=== PATIENT | male | born 1945 | race Caucasian/White ===

== ENCOUNTER → 2016-05-27 | Outpatient (CLI) | payer MEDICARE, OTHER ==
[~2016-05-27] MED LIST: COU1 PO; COU2 PO; CRES10 PO; LAS20 PO; MONT10TA21 PO; NEBI10TA2 PO; NEBI5TAB9 PO; OLME20TA20 PO; PANT40TA4 PO; POTA20TA81 PO; PRAV80TA PO; ROSU10TA PO; VERA180T6 PO
--- NOTE | 2016-05-27 11:55 | RADRPT ---
PROCEDURE: XR pelvis/right hip. CLINICAL INDICATION: Hip pain TECHNIQUE: AP pelvis/AP and lateral right hip views available for review. COMPARISON: 02/26/2016 FINDINGS: There is a right total hip replacement. There is no evidence of loosening of the prosthesis. There is moderate left hip osteoarthrosis. This is associated with joint space narrowing, subchondra l sclerosis and osteophytosis. There is normal osseous mineralization. No fractures or osseous lesio ns are identified. The soft tissues are unremarkable. IMPRESSION: Right total hip replacement. Moderate left hip osteoarthrosis. RPTAT: HGDB .Michel Melton MD, MD Date Time Electronically viewed and signed by .Michel Melton MD, MD on 05/27/2016 11:55 .B/
== END | disposition home or self-care (01) ==
LOC: HKI 10:38
PROVIDERS: ATTEND Orthopaedic Surgery
DX: M17.0 Bilateral primary osteoarthritis of knee (principal); M25.562 Pain in left knee; M25.561 Pain in right knee; Z96.641 Presence of right artificial hip joint
CPT/HCPCS: 73502; G0463

== ENCOUNTER → 2016-06-28 | Outpatient (CLI) | payer MEDICARE, OTHER ==
--- NOTE | 2016-06-28 11:40 | RADRPT ---
PROCEDURE: XR Chest. CLINICAL INDICATION: Preop chest x-ray. TECHNIQUE: Single frontal view of the chest was obtained COMPARISON: No. FINDINGS: The soft tissues are normal. Mediastinum has been performed. There are clips in the mediastinum. The heart is enlarged. The cardiomediastinal silhouette, pulmonary vasculature and hilar structures are normal. There are vascular calcifications in the aortic arch. There is a 7 mm calcified granulo ma lateral to the right hilum. There are increased interstitial markings in the bases of the lungs. The costophrenic angles are normal. IMPRESSION: 1. Status post median sternotomy for coronary artery bypass surgery. 2. 7 mm calcified granuloma in the left mid lung field. 3. Compressive atelectasis resulting in increased interstitial markings in the bases of the lungs fr om a poor inspiration. There is no evidence of active cardiopulmonary disease. RPTAT:AAJJ Physician Adina Date Time Electronically viewed and signed by Physician Adina on 06/28/2016 11:40 NORMA/
--- NOTE | 2016-06-28 14:26 | RADRPT ---
PROCEDURE: Limited x-ray of both lower extremities. CLINICAL INDICATION: Bilateral leg pain. TECHNIQUE: Single frontal view of both lower extremities was obtained from the hips to the calves. COMPARISON: None. FINDINGS: The hips are not well seen due to overlying soft tissues. There is a right hip total arthroplasty w hich appears grossly satisfactory. There are moderate degenerative changes of the left hip with sue nt space narrowing and osteophytes. There are degenerative changes of both knees with joint space n arrowing, osteophytes, and medial joint compartment narrowing. Surgical clips are present in the so ft tissues medial to the left knee. IMPRESSION: 1. Right hip total arthroplasty. 2. Moderate degenerative changes of the left hip. 3. Severe degenerative changes of both knees. RPTAT: QQ .Johnny Juan MD, Date Time Electronically viewed and signed by .Johnny Juan MD, on 06/28/2016 14:26 .R/
== END | disposition home or self-care (01) ==
LOC: HKI 10:29
PROVIDERS: ATTEND Orthopaedic Surgery
DX: M25.562 Pain in left knee (principal); M17.12 Unilateral primary osteoarthritis, left knee; Z96.641 Presence of right artificial hip joint
CPT/HCPCS: 71010; 77073; G0463

== ENCOUNTER 2016-07-04 07:32 | Inpatient (IN) | payer MEDICARE, OTHER ==
[2016-07-04] VITALS (31 sets, daily range): BP systolic 88–136; BP diastolic 51–81; PULSE 50–89; RESP 15–28; Ht 190.5 cm; Wt 146.3 kg
[~2016-07-04] VITALS: Ht 190.5 cm; Wt 146.3 kg
[~2016-07-04 07:32] MED LIST changes: +BUPIVACAINE LIPOSOME/PF 266 MG/20 ML VIAL INFIL ONE; +CEFAZOLIN 2GM/50 ML (PMX) 50 ML X1 BEFORE INCISION IVPB ONE; +CELECOXIB 400 MG PO X1 DOSE PO ONE; +EPHEDrine SULFATE 50 MG/5 ML SYG ONE; +LACTATED RINGER'S 1,000 ML IV SCH; +PAIN COCKTAIL-CEFUROXIME IRR ONE; +PREGABALIN 300 MG PO X1 PO ONE; +SOD CHLORIDE 0.9% IV ONE; +SOD CHLORIDE 0.9% IVPB ONE; +TRANEXAMIC ACID IV ONE; +TRANEXAMIC ACID IVPB ONE; +oxyCODONE (CR) 10 MG TAB [oxyCONTIN] X1 DOSE PO ONE; +traMADOL 50 MG TAB X 1 DOSE PO ONE
[2016-07-04] MEDS ORDERED: BACITRACIN 50000 UNITS INJ ONE (09:20)
[2016-07-04 09:26] LABS: INR 0.96; PROTIME 12.8 Sec (12.2-14.2)
[2016-07-04 09:27] LABS: PARTIAL THROMBOPLASTIN TIME 32.6 Sec (25.0-35.0)
[2016-07-04] MEDS ORDERED: METF-382 PO (09:30)
[2016-07-04] MEDS ORDERED: PRAV80TA PO (09:30)
[2016-07-04] MEDS ORDERED: DABI150C PO (09:32)
[2016-07-04] MEDS ORDERED: IBUP200C11 PO (09:32)
[2016-07-04] MEDS ORDERED: VANCOMYCIN 1 GM INJ ONE (09:48)
[2016-07-04] MEDS ORDERED: POLYMYXIN B 500000 UNIT INJ ONE (09:48)
[2016-07-04] MEDS ORDERED: SODIUM CL BACTERIOSTATIC 30 ML INJ ONE ×2 (09:48→11:11)
--- NOTE | 2016-07-04 10:02 | HPN ---
Date/Time of Note Date/Time of Note DATE: 07/04/16 TIME: 10:02 Interval H&P Admission Note Pt. seen H&P reviewed: No system changes No change from H&P by Dr. Hollis Ybarra on 06/18/16 LEXIE DUKES MD Jul 04, 2016 10:02
[2016-07-04] MEDS ORDERED: EXPAREL NOTE (BUPIVICAINE LIPOSOMAL) XX SCH (10:30)
[2016-07-04] MEDS ORDERED: ETOMIDATE 20 MG INJ ONE (10:46)
[2016-07-04] MEDS ORDERED: PROPOFOL 100 ML ONE (10:48)
[2016-07-04] MEDS ORDERED: FENTAnyl 50 MCG/ML VIAL ONE (10:48)
[2016-07-04] MEDS ORDERED: MIDAZOLAM 1 MG/ML 2 ML INJ ONE (10:48)
[2016-07-04] MEDS ORDERED: METOCLOPRAMIDE 10 MG INJ ONE (10:49)
[2016-07-04] MEDS ORDERED: DEXAMETHASONE 4 MG/ML 1 ML INJ ONE (10:50)
[2016-07-04] MEDS ORDERED: CEFAZOLIN 1 GM INJ ONE (10:51)
[2016-07-04] MEDS ORDERED: METOCLOPRAMIDE 10 MG INJ IV PRN (11:30)
[2016-07-04] MEDS ORDERED: ONDANSETRON 4 MG INJ IV PRN ×2 (11:30→13:00)
[2016-07-04] MEDS ORDERED: MEPERIDINE 25 MG INJ IV PRN (11:30)
[2016-07-04] MEDS ORDERED: hydrALAzine 20 MG INJ IV PRN (11:30)
[2016-07-04] MEDS ORDERED: LABETALOL HCL 20MG INJ IV PRN (11:30)
[2016-07-04] MEDS ORDERED: DIPHENHYDRAMINE 50 MG INJ IV PRN (11:30)
[2016-07-04] MEDS ORDERED: HYDROmorphONE (0.2 MG/ML) 10ML SYG IV PRN ×3 (11:30)
[2016-07-04] MEDS: LACTATED RINGER'S 1,000 ML IV SCH ×2 (12:51→20:39)
--- NOTE | 2016-07-04 12:58 | OPR ---
Date/Time of Note Date/Time of Note DATE: 07/04/16 TIME: 12:57 Operative Report Free Text/Dictation Dictation # [id number] Procedure Date: Jul 04, 2016 Preoperative Diagnosis Left Knee OA Postoperative Diagnosis Same Operation Performed Left TKA Surgeon: LEXIE DUKES MD safety assistant: KIRSTEN WALDRON PA-C Anesthesia: general, spinal Anesthesiologist: POONAM AGUILAR MD Tourniquet Time: 59 min Estimated Blood Loss: 50 - 100 ml's Specimens Bone and soft tissue Tubes/Drains Hemovac x 1 Complications: None Pt Condition Post Procedure: stable Disposition: PACU LEXIE DUKES MD Jul 04, 2016 12:58
[2016-07-04] MEDS ORDERED: oxyCODONE 5 MG TAB PO PRN ×2 (13:00)
[2016-07-04] MEDS ORDERED: NA PHOSPHATE/BIPHOS 133 ML ENEMA PR PRN (13:00)
[2016-07-04] MEDS ORDERED: BISACODYL 10 MG SUPP PR PRN (13:00)
[2016-07-04] MEDS ORDERED: NACL 0.9% 3 ML SYG IV SCH (13:00)
[2016-07-04] MEDS ORDERED: MAGNESIUM HYDROXIDE 30ML CUP PO PRN (13:00)
[2016-07-04] MEDS ORDERED: HYDROmorphONE 1 MG/ML SYG IV PRN (13:00)
[2016-07-04] MEDS ORDERED: DIPHENHYDRAMINE 25 MG CAP PO PRN (13:00)
[2016-07-04] MEDS: CEFAZOLIN 2 GM/50 ML (PMX) 50 ML IVPB SCH ×2 (13:19→20:40)
--- NOTE | 2016-07-04 13:36 | OPR ---
DATE OF OPERATION: 07/04/2016 PREOPERATIVE DIAGNOSIS: Left knee osteoarthritis. POSTOPERATIVE DIAGNOSIS: Left knee osteoarthritis. OPERATION PERFORMED: Left total knee arthroplasty. SURGEON: Lexie Call MD STAFFING MGR: LAKIA Christianson COMPONENTS USED: DePuy Attune size 8 femoral component, size 8 tibial baseplate, 5-mm polyethylene insert, 41 patellar button. ANESTHESIA: Spinal, plus general endotracheal intubation, plus periarticular injection. ANESTHESIOLOGIST: Dr. Varghese TOURNIQUET TIME: 59 minutes. ESTIMATED BLOOD LOSS: 50 mL. INTRAVENOUS FLUIDS: 2 liters of crystalloid. SPECIMENS: Bone and soft tissue. DRAINS: Hemovac x1. COMPLICATIONS: None. DISPOSITION: Patient tolerated the procedure well and was taken [facility] the [facility] INDICATIONS: The patient is a 70-year-old gentleman who has had progressive worsening pain in the l eft knee with radiographic evidence of severe osteoarthritis. He has failed nonsurgical means of tr eatment to control his pain, including activity modifications, pain medications, intra-articular inj ections, and ambulatory assist devices. Despite these measures, he has had worsening pain and I fel t he would benefit from a total hip arthroplasty. The risks, benefits, and alternatives of the procedure were explained in detail to the patient. I e xplained the risks of the surgery to include but not be limited to, bleeding and possible need for b lood transfusion; infection; pain; stiffness; neurovascular injury with possible numbness, weakness, and/or paralysis anywhere from the knee down to the toes; fracture; instability; dislocation; wear and/or loosening of the prosthesis and possible need for future revision; blood clots; pulmonary emb olism; and anesthetic complications such as heart attack, stroke, GI bleed, pneumonia, and/or . Ample time was allowed for the patient to ask questions, all of which were addressed and answered. The patient understood the risks involved and wished to proceed. Informed consent was signed prior to the procedure. APPROACH: The patella was cut from 26 mm down to 16 mm in size. PROCEDURE: The patient's left knee was initialed with a marking pen in the preoperative area to letitia ntify the correct operative site. The patient was brought to the operating room and transferred fro [facility] to the operating table where a spinal anesthetic was administered. The patient was then anesthetized and intubated. A Wall catheter was placed. A timeout was performed to conf irm that the left leg was the correct operative site. The patient was given 2 g of Ancef within one hour prior to the procedure. A tourniquet was placed on the operative proximal thigh. The operati ve knee and lower extremity were prepped and draped in the usual sterile fashion. The operative low er extremity was elevated and exsanguinated with an Esmarch tourniquet. The proximal thigh tourniqu et was inflated to 300 mmHg. The knee was flexed. A midline incision was made and carried down through the subcutaneous tissue a nd fat with sharp dissection. Limited medial and lateral flaps were raised. A median parapatellar arthrotomy approach was performed. Synovial fluid was normal in color and consistency. The patella was everted and the knee flexed. There were severe tricompartmental osteoarthritic changes noted. A medial release was performed at the joint line to the midcoronal plane. The ACL and PCL and remnan ts of the menisci were excised. The stepped drill was used to open up the femoral canal which was i rrigated and sucked dry. The intramedullary guide julito was passed up the femur, and the distal cutti ng block was pinned into place for a 6 degree valgus cut, taking 10 mm of bone off distally. The osc illating saw was used to make the cut. The tibia was subluxed anteriorly. The tibial cutoff jig was placed over the center of the talus di stally and over the junction of the medial and middle third of the tibial tubercle proximally. The g uide was pinned into place and the oscillating saw was used to make the cut. The tibia was sized. The flexion gap was checked and accommodated a 5-mm spacer block with the knee in full extension. T here was no varus or valgus instability. At this point, the femur was sized with the posterior referencing guide. Two holes were drilled in 3 degrees of external rotation. The two holes were in line with the transepicondylar axis, perpendi cular to Duval's line, and in line with the tibial cutoff jig brought up with the knee flexed 90 degrees and tensed with 2 lamina spreaders, suggesting the femoral rotation was correct. The four- in-one cutting block was pinned into place. The anterior and posterior cuts and chamfer cuts were m thelma with the oscillating saw. The flexion gap was checked and accommodated a 5-mm spacer block at 9 0 degrees. There was no varus or valgus instability, suggesting the flexion and extension gaps were now equal. The central box was cut out on the femur. The tibia was drilled and punched in proper rotation. Tri al components were placed into position with a trial insert. The patella was cut from 26 mm down to 16 mm in size. Three holes were drilled and the trial button placed in position. With all the tri als now in place, the knee was taken through range of motion and came to full extension as evidenced by the fact that with the foot on my abdomen and axial loading, there was no tendency for the knee to flex. The knee was able to be flexed to 125 degrees with good patellar tracking with no lateral tilt or subluxation. At this point, I was satisfied with the overall range of motion, stability, an d patellar tracking. The trials were removed. The real components were opened. Two bags of cement were mixed, one with and one without premixed antibiotic. The knee was irrigated with antibiotic saline and sucked dry. Once the cement was in a doughy stage, the real components were cemented into place. The knee was held in full extension, and the patellar component was held with a patellar clamp. All excess cemen t was removed with curettes. As the cement was hardening, the synovial/capsular layer was infiltrat ed with a mixture of 150 mg of 0.5% Bupivacaine, 8 mg of Duramorph, 300 mcg of epinephrine, 30 mg of Toradol, 100 mcg of clonidine, 750 mg of cefuroxime and 86 mL of normal saline, followed by an inje ction of 266 mg of liposomal Bupivacaine. A Hemovac drain was placed in the deep portion of the wound and brought out the anterolateral thigh. Once the cement was completely hardened, the trial liner was removed, and the real insert was open ed. The tourniquet was let down, and there was good hemostasis. The knee was then irrigated with a mixture of betadine/saline and then antibiotic saline with pulsatile lavage. The real insert was im pacted into the tibia and reduced onto to the femur. The arthrotomy was closed with a few interrupted #1 Ethibond in a [id number]-[id number] fashion, and then closed in a watertight fashion with a running #2 Stratafix suture. Knee flexion was checked against gravity and came to 125 degrees. The subcutaneous layer was irrigated and closed with 2-0 Statafix , and then 3-0 Vicryl and then vianey on the skin. The wound was covered with an occlusive dressin g, and secured with cast padding and a bias dressing. The drain was secured with 3-0 nylon. The sponge and needle counts were correct at the end of the case. The patient was then awakened, ex tubated, and taken to the recovery room in stable condition. DISPOSITION: The patient tolerated the procedure well and was taken to the recovery room in stable condition. Dictated By: LEXIE VORA/NTS Conf#: [id number] DID#: [id number]
[2016-07-04 13:49] LABS: HEMOGLOBIN 12.6 g/dl (14.0-18.0)
--- NOTE | 2016-07-04 13:53 | CONS ---
DATE OF ADMISSION: 07/04/2016 DATE OF CONSULTATION: 07/04/2016 POSTOPERATIVE MEDICAL CONSULTATIVE NOTE Dear Dr. Bright: Thank you very much for allowing me to evaluate this 70-year-old male who just underwent left total knee arthroplasty. HISTORICAL EVENTS: As you well know, this patient has had progressive disabling pain involving his left knee and for this, underwent the above-mentioned surgery. In recovery he is somnolent, not tac hypneic. Denies shortness of breath, abdominal pain or chest pain. PAST MEDICAL HISTORY INCLUDES: 1. History of recurrent atrial flutter, undergoing ablation in 2004, with known coronary disease, u ndergoing coronary artery bypass surgery in 1999 and percutaneous coronary intervention. 2. History of hypertension. 3. Hyperlipidemia, on chronic anticoagulation therapy. 4. Antecedent hip surgery (right). 5. Nasal surgery. MEDICATIONS: 1. Singulair 10 mg day. 2. Benicar 20 mg per day. 3. Pravachol 80 mg per day. 4. Pradaxa 150 mg b.i.d. 5. Verapamil ER 180 per day. 6. Bystolic 10 mg per day. 7. Lasix 20 mg per day. 8. Metformin 500 mg b.i.d. 9. K-Kristen 20 mEq per day. ALLERGIES OR INTOLERANCES: INCLUDE: 1. ATORVASTATIN. 2. NIACIN. 3. SIMVASTATIN. 4. ZETIA. 5. COUMADIN. SOCIAL HISTORY: He is . A prior smoker. He does drink alcohol. PHYSICAL EXAMINATION: GENERAL: [place] male, in no acute distress message. VITAL SIGNS: BP 122/80, pulse 70, respirations were 20. He was afebrile. EYES: Extraocular muscles were full. NOSE, MOUTH, AND THROAT: Normal. NECK: Supple. No jugular venous distention, thyroid enlargement or adenopathy. LUNGS: Clear. HEART: Rhythm regular. ABDOMEN: Nontender. Liver and spleen were not palpable. No masses or tenderness were noted. EXTREMITIES: No edema. Calves were nontender. IMPRESSION: Stable postoperative. PLAN: 1. Will follow daily for signs and symptoms of thromboembolic disease despite appropriate DVT proph ylaxis. 2. History of supraventricular dysrhythmia. Will be observing for the same. Presently in regular rhythm. 3. History of hypertension. Continue antihypertensive therapy. Blood pressures will be monitored throughout. 4. Hyperlipidemia. Continue a statin daily. Dictated By: VIKRAM GIVENS MD MR/NTS Conf#: [id number] DID#: [id number]
[2016-07-04 14:14] LABS: CALCIUM 8.8 mg/dl (8.4-10.2); CREATININE 0.81 mg/dl (0.61-1.24)
--- NOTE | 2016-07-04 14:15 | RADRPT ---
PROCEDURE: CR Left Knee CLINICAL INDICATION: Postop TECHNIQUE: Portable AP and lateral views were submitted. COMPARISON: To the lower extremities study done 06/28/2016 FINDINGS: Osseous Structures: Since the previous study, the patient has undergone a total left knee replacemen t and the components appear well seated. The osseous elements are otherwise rarefied but intact. Joint Spaces: Fluid accumulation and a small amount of air is seen within the joint space and a surg ical drain has been placed. Soft Tissues: Subcutaneous air is evident at multiple vianey are again seen within the soft tissues medially and superficial vianey of placed anteriorly. A small curvilinear calcification is seen o ff the medial distal femoral epicondyle compatible with a Armida-Stieda calcification. IMPRESSION: 1. Well seated total left knee replacement. 2. Postop changes with interarticular fluid in air with the drain placed. 3. Armida-Stieda calcification. 4. Surgical vianey are again noted in the medial soft tissues and superficial vianey have been pl aced ventrally. Physician Selene Date Time Electronically viewed and signed by Physician Selene on 07/04/2016 14:15 /
[2016-07-04] MEDS: LOSARTAN 50 MG TAB PO SCH (15:00)
--- NOTE | 2016-07-04 15:30 | PN ---
Date/Time of Note Date/Time of Note DATE: 07/04/16 TIME: 15:28 Assessment/Plan Lines/Catheters IV Catheter Type (from Nrsg): Peripheral IV Jain in Place (from Nrsg): Yes Assessment/Plan Assessment/Plan Stable in PACU, s/p left TKA -continue abx until drains removed -pain meds as needed -Coumadin 3mg at 1700 today -SCDs for DVT prophylaxis -OOB with PT -check AM labs including INR -monitor drain -d/c jain in AM XR of the left knee shows good alignment with no evidence of fracture or dislocation Subjective 24 Hr Interval Summary Stable in PACU. Moving all extremities. Denies significant pain. Exam/Review of Systems Vital Signs Vitals Vital Signs Date Time Temp Pulse Resp B/P Pulse Ox O2 Delivery O2 Flow Rate FiO2 07/04/16 15:00 Nasal Cannula 2.0 07/04/16 14:40 98.3 58 15 93/54 94 Exam Free Text/Dictation Hemovac: Minimal Dressing dry Incision clean, dry, and intact without redness or drainage Thigh soft 5/5 Quadriceps, Tibialis Anterior, EHL, Gastroc, Soleus, Peroneals Normal sensation Palpable DT/PT, CR <2 sec No distal edema Results Result Diagram: 07/04/16 1325 07/04/16 1325 KIRSTEN WALDRON PA-C Jul 04, 2016 15:30
[2016-07-04] MEDS ORDERED: TRANEXAMIC ACID IVPB ONE ×2 (16:00→19:00)
[2016-07-04] MEDS ORDERED: SOD CHLORIDE 0.9% IVPB ONE ×2 (16:00→19:00)
[2016-07-04] MEDS ORDERED: WARFARIN 3 MG TAB PO ONE (17:00)
[2016-07-04] MEDS: PANTOPRAZOLE (EC) 40 MG TAB PO SCH (17:40)
[2016-07-04] MEDS: ACETAMINOPHEN 1000MG/100ML IV 100 ML IVPB SCH ×2 (17:41→23:56)
[2016-07-04] MEDS: traMADol 50 MG TAB PO SCH ×2 (18:00→23:55)
[2016-07-04] MEDS: DOCUSATE SODIUM 100 MG CAP PO SCH (20:39)
[2016-07-04] MEDS: PREGABALIN 50 MG CAP PO SCH (20:39)
[2016-07-04] MEDS: ROSUVASTATIN CALCIUM 40 MG TABLET PO SCH (20:40)
[2016-07-04] MEDS ORDERED: NON-FORMULARY/PATIENT OWN MED (Rosuvastatin Calcium* (Crestor*) 10 MG) PO SCH (21:00)
[2016-07-04] MEDS ORDERED: POTASSIUM CHLORIDE (SR) 20 MEQ TAB PO SCH (21:00)
[2016-07-04] MEDS: VERAPAMIL (SR) 180 MG TAB PO SCH (21:31)
[2016-07-05 02:00] VITALS: BP 104/68; PULSE 76; RESP 16
[2016-07-05 05:01] LABS: HEMATOCRIT 37.2 % (42.0-52.0); HEMOGLOBIN 11.7 g/dl (14.0-18.0)
[2016-07-05 05:10] LABS: POTASSIUM 4.9 mmol/L (3.5-5.1)
[2016-07-05 05:11] LABS: INR 1.05; PROTIME 13.7 Sec (12.2-14.2); PT RATIO 1.1
[2016-07-05 05:12] LABS: CREATININE 0.98 mg/dl (0.61-1.24)
[2016-07-05] MEDS: CEFAZOLIN 2 GM/50 ML (PMX) 50 ML IVPB SCH (05:14)
[2016-07-05] MEDS: PANTOPRAZOLE (EC) 40 MG TAB PO SCH ×2 (05:14→17:38)
[2016-07-05 05:17] LABS: MAGNESIUM 1.9 mg/dl (1.7-2.5); PHOSPHORUS 4.3 mg/dl (2.5-4.9)
[2016-07-05] MEDS: LACTATED RINGER'S 1,000 ML IV SCH ×3 (05:22→20:51)
[2016-07-05] MEDS: traMADol 50 MG TAB PO SCH ×4 (05:52→23:44)
[2016-07-05] MEDS: ACETAMINOPHEN 1000MG/100ML IV 100 ML IVPB SCH ×2 (05:52→11:38)
[2016-07-05 07:51] VITALS: BP 118/64; RESP 20
[2016-07-05] MEDS ORDERED: PRAVASTATIN SODIUM 80 MG PO SCH (09:00)
[2016-07-05] MEDS ORDERED: FUROSEMIDE 20 MG TAB PO SCH (09:00)
[2016-07-05] MEDS: NEBIVOLOL 5 MG TAB PO SCH (09:14)
[2016-07-05] MEDS: MONTELUKAST 10 MG TAB PO SCH (09:14)
[2016-07-05] MEDS: PREGABALIN 50 MG CAP PO SCH ×2 (09:14→21:49)
[2016-07-05] MEDS: metFORMIN 500 MG TAB PO SCH (09:14)
[2016-07-05] MEDS: DOCUSATE SODIUM 100 MG CAP PO SCH ×2 (09:14→21:48)
[2016-07-05] MEDS: LOSARTAN 50 MG TAB PO SCH (09:15)
[2016-07-05] MEDS: VERAPAMIL (SR) 180 MG TAB PO SCH ×2 (09:15→21:48)
--- NOTE | 2016-07-05 09:15 | PN ---
Date/Time of Note Date/Time of Note DATE: 07/05/16 TIME: 09:14 Assessment/Plan Lines/Catheters IV Catheter Type (from Nrsg): Peripheral IV Wall in Place (from Nrsg): Yes Assessment/Plan Assessment/Plan Stable POD #1, s/p left TKA -d/c abx -pain meds as needed -Coumadin 3mg at 1700 today -SCDs BLE -OOB with PT -drain removed -check AM labs including INR -d/c planning. Will plan to go home upon discharge Subjective 24 Hr Interval Summary No acute overnight events. Denies significant pain. Did not start PT yesterday. VSS, afebrile. Will plan to go home upon discharge. Exam/Review of Systems Vital Signs Vitals Vital Signs Date Time Temp Pulse Resp B/P Pulse Ox O2 Delivery O2 Flow Rate FiO2 07/05/16 07:51 97.5 64 20 118/64 97 07/05/16 02:00 Nasal Cannula 2.0 Intake and Output 07/04/16 07/04/16 07/05/16 15:00 23:00 07:00 Intake Total 1800 ml 1129.2 ml 1550 ml Output Total 180 ml 300 ml 430 ml Balance 1620 ml 829.2 ml 1120 ml Exam Free Text/Dictation Hemovac: 160cc Dressing dry Incision clean, dry, and intact without redness or drainage Thigh soft 5/5 Quadriceps, Tibialis Anterior, EHL, Gastroc, Soleus, Peroneals Normal sensation Palpable DT/PT, CR <2 sec No distal edema Results Result Diagram: 07/05/16 0435 07/05/16 0420 KIRSTEN WALDRON PA-C Jul 05, 2016 09:15
[2016-07-05 10:08] LABS: ADD UMIC YES; URINE BILIRUBIN (Dip) NEGATIVE (NEGATIVE); URINE BLOOD (Dip) 2+ (NEGATIVE); URINE COLOR YELLOW (YELLOW); URINE GLUCOSE (Dip) NEGATIVE (NEGATIVE); URINE KETONES (Dip) NEGATIVE (NEGATIVE); URINE LEUKOCYTE ESTERASE (Dip) NEGATIVE (NEGATIVE); URINE NITRITE (Dip) NEGATIVE (NEGATIVE); URINE TOTAL PROTEIN (Dip) TRACE (NEGATIVE); URINE UROBILINOGEN (Dip) 0.2 E.U./dL (0.1-1.0)
[2016-07-05 10:27] LABS: SQUAMOUS EPITHELIAL CELL,UR FEW; URINE RBCS 0-2 /HPF (0)
--- NOTE | 2016-07-05 10:52 | CONS ---
Date/Time of Note Date/Time of Note DATE: 07/05/16 TIME: 10:50 Assessment/Plan Assessment/Plan Additional Assessment/Plan 1. Doing well post op left knee replacement 2. History of supraventricular dysrhythmia, rhythm is regular 3. Hyperlipidemia. Continue a statin daily. 4. Labs reviewed Consultation Date/Type/Reason Admit Date/Time Jul 04, 2016 at 07:32 Initial Consult Date Detailed Summary Respiratory: No cough, No shortness of breath Cardiovascular: No chest pain Gastrointestinal: no complaints Genitourinary: no complaints, other (jain just removed) Musculoskeletal: bone/joint pain (mild left knee pain) Exam/Review of Systems Vital Signs Vitals Vital Signs Date Time Temp Pulse Resp B/P Pulse Ox O2 Delivery O2 Flow Rate FiO2 07/05/16 07:51 97.5 64 20 118/64 97 07/05/16 02:00 Nasal Cannula 2.0 Intake and Output 07/04/16 07/04/16 07/05/16 15:00 23:00 07:00 Intake Total 1800 ml 1129.2 ml 1550 ml Output Total 180 ml 300 ml 430 ml Balance 1620 ml 829.2 ml 1120 ml Exam Neck: No jvd Respiratory: clear to auscultation Cardiovascular: regular rate and rhythm Gastrointestinal: soft Extremities: No edema (and no calf tend bilat) Results Result Diagram: 07/05/16 0435 07/05/16 0420 Results 24 hrs Laboratory Tests Test 07/04/16 13:25 07/05/16 04:20 07/05/16 04:35 07/05/16 06:05 Hemoglobin 12.6 L 11.7 L Hematocrit 39.0 L 37.2 L Sodium Level 138 135 Potassium Level 4.0 4.9 Chloride Level 104 101 Carbon Dioxide Level 28 28 Anion Gap 10 11 Blood Urea Nitrogen 12 20 Creatinine 0.81 0.98 Glucose Level 160 143 Calcium Level 8.8 9.0 Prothrombin Time 13.7 Prothrombin Time Ratio 1.1 INR International Normalized Ratio 1.05 Phosphorus Level 4.3 Magnesium Level 1.9 Urine Color YELLOW Urine Clarity CLEAR Urine pH 5.5 Urine Specific Enochs >=1.030 H Urine Ketones NEGATIVE Urine Nitrite NEGATIVE Urine Bilirubin NEGATIVE Urine Urobilinogen 0.2 E.U./dL Urine Leukocyte Esterase NEGATIVE Urine Microscopic RBC 0-2 Urine Microscopic WBC 0-2 Urine Squamous Epithelial Cells FEW Urine Hyaline Casts FEW Urine Hemoglobin 2+ H Urine Glucose NEGATIVE Urine Total Protein TRACE Medications Medications Current Medications Montelukast Sodium (Singulair) 10 mg DAILY PO Last administered on 07/05/16 09 :14; Admin Dose 10 MG; Start 07/05/16 at 09:00 Miscellaneous Medication (Bystolic) 10 mg DAILY PO Last administered on 09:14; Admin Dose 10 MG; Start 07/05/16 at 09:00 Verapamil HCl (Isoptin Sr) 180 mg BID PO Last administered on 07/05/16 09:15; Admin Dose 180 MG; Start 07/04/16 at 21:00 Losartan Potassium 100 mg 100 mg DAILY PO Last administered on 07/05/16 09:15 ; Admin Dose 100 MG; Start 07/04/16 at 15:00 Lactated Ringer's 1,000 ml @ 125 mls/hr Q8H IV Last administered on 07/05/16 05:22; Admin Dose 125 MLS/HR; Start 07/04/16 at 12:51 Acetaminophen (Ofirmev 1000mg/ 100ml Iv) 100 ml @ 400 mls/hr Q6 IVPB Last administered on 07/05/16 05:52; Admin Dose 400 MLS/HR; Start 07/04/16 at 18:00 ; Stop 07/05/16 at 17:59 Tramadol HCl (Ultram) 50 mg Q6 PO Last administered on 07/05/16 05:52; Admin Dose 50 MG; Start 07/04/16 at 12:00; Stop 07/07/16 at 11:59 Oxycodone HCl (Roxicodone) 5 mg Q4H PRN PO PAIN LEVEL 1-3; Start 07/04/16 at 13 :00 Oxycodone HCl (Roxicodone) 10 mg Q4H PRN PO PAIN LEVEL 4-7; Start 07/04/16 at 13:00 Hydromorphone HCl (Dilaudid) 1 mg Q3H PRN IV PAIN LEVEL 8-10; Start 07/04/16 at 13:00 Ondansetron HCl (Zofran Inj) 4 mg Q6H PRN IV NAUSEA AND/OR VOMITING; Start at 13:00 Bisacodyl (Dulcolax Supp) 10 mg Q12H PRN CA CONSTIPATION; Start 07/04/16 at 13: 00 Magnesium Hydroxide (Milk Of Mag) 30 ml BID PRN PO CONSTIPATION; Start at 13:00 Sodium Biphosphate/ Sodium Phosphate (Fleet Enema) 133 ml DAILY PRN CA CONSTIPATION; Start 07/04/16 at 13:00 Docusate Sodium (Colace) 100 mg BID PO Last administered on 07/05/16 09:14; Admin Dose 100 MG; Start 07/04/16 at 21:00 Diphenhydramine HCl (Benadryl) 25 mg Q6H PRN PO PRURITUS; Start 07/04/16 at 13: 00 Pantoprazole (Protonix Tab) 40 mg BID@06,18 PO Last administered on 07/05/16 05:14; Admin Dose 40 MG; Start 07/04/16 at 18:00 Pregabalin (Lyrica) 50 mg BID PO Last administered on 07/05/16 09:14; Admin Dose 50 MG; Start 07/04/16 at 21:00 Rosuvastatin Calcium (Crestor) 10 mg QHS PO Last administered on 07/04/16 20: 40; Admin Dose 10 MG; Start 07/04/16 at 21:00 Warfarin Sodium (Coumadin) 3 mg ONCE@17 ONCE PO ; Start 07/05/16 at 17:00; Stop 07/05/16 at 17:01 VIKRAM GIVENS MD Jul 05, 2016 10:52
--- NOTE | 2016-07-05 16:16 | PDOCDIS ---
Discharge Instructions DIAGNOSIS Discharge Diagnosis: s/p left TKA CONDITION Patient Condition: Good HOME CARE INSTRUCTIONS: Diet Instructions: RegularSpecial Diet: REGULAR DIET ACTIVITY: Activity Restrictions: Slowly Increase Activity Rest between Activity Avoid heavy lifting Do not operate Machinery Do not operate Power Tool Avoid Heavy Housework Keep Limb Elevated Bathing Restrictions: Shower FOLLOW UP/APPOINTMENTS Appointments follow up in the office on 07/15/16 OTHER ORDERS: Other Orders: S/P TKA Physical Therapy: Three times per week at home x 2 weeks Daily in Rehab/SNF WB STATUS: WBAT 1. Strengthening exercises for both upper and un-operated lower extremities. 2. Gait training with front wheeled walker 3. Active range of motion exercises to operative knee. 4. When not working on knee range of motion exercises, distal towel roll under operative ankle/distal calf to promote full extension. 5. DO NOT PUT ANYTHING BEHIND OPERATIVE KNEE!!! 6. Quadriceps and hamstring strengthening. 7. May switch to cane in contra lateral hand 6 weeks after surgery. 8. Physical Therapy can open case if nursing is not available. 9. Use Ice Machine as instructed from date of surgery while at rest 3X/day. 10. Patient requires mobile SCDs to reduce risk of developing DVT following TKA. Patient will use the mobile SCDs for 30 days postoperatively. Bathing assistance by home health aide twice weekly if Medicare patient. Occupational Therapy: Evaluation for assistive devices and ADL training. Wound Care: Keep incision dry & covered with Tegaderm until first visit with Dr. Call Anticoagulation Orders: Enteric Coated Aspirin 325 mg po bid x 6 weeks from date of surgery Follow-up:Call for an appointment with Dr. Call in 1 week after discharged from hospital at DME Orders: FWKurt, 3-in-1 Commode, Polar ice machine, Mobile SCDs KIRSTEN WALDRON PA-C Jul 05, 2016 16:16
[2016-07-05] MEDS ORDERED: TRAM50TA2 PO (16:20)
[2016-07-05] MEDS ORDERED: WARF1TAB47 PO (16:20)
[2016-07-05] MEDS ORDERED: HYDR-905 PO (16:20)
[2016-07-05] MEDS ORDERED: PREG50CA PO (16:20)
[2016-07-05] MEDS ORDERED: WARF2TAB PO (16:20)
[2016-07-05] MEDS ORDERED: GLUCOSE GEL 15 GRAM TUBE PO PRN ×2 (16:30)
[2016-07-05] MEDS ORDERED: GLUCOSE GEL 15 GRAM TUBE BUCCAL PRN (16:30)
[2016-07-05] MEDS ORDERED: DEXTROSE 50% 50 ML SYRINGE IV PRN ×2 (16:30)
[2016-07-05] MEDS ORDERED: GLUCAGON 1 MG INJ IM PRN (16:30)
[2016-07-05] MEDS ORDERED: WARFARIN 3 MG TAB PO ONE (17:00)
--- NOTE | 2016-07-05 17:10 | PN ---
Date/Time of Note Date/Time of Note DATE: 07/05/16 TIME: 17:06 Assessment/Plan VTE Prophylaxis VTE Prophylaxis Intervention: SCD's Lines/Catheters IV Catheter Type (from Nrsg): Peripheral IV Urinary Cath still in place: Yes Subjective 24 Hr Interval Summary Free Text/Dictation Anesthesia note: A 70 year male s/p left knee arthroplasty under GA and spinal, pod #1 doing fine. no pain, n/v, itching, headache ,or back pain. back is clean. V/S stable. care per surgery team. Exam/Review of Systems Vital Signs Vitals Vital Signs Date Time Temp Pulse Resp B/P Pulse Ox O2 Delivery O2 Flow Rate FiO2 07/05/16 08:25 Nasal Cannula 2.0 07/05/16 07:51 97.5 64 20 118/64 97 Intake and Output 07/04/16 07/04/16 07/05/16 15:00 23:00 07:00 Intake Total 1800 ml 1129.2 ml 1550 ml Output Total 180 ml 300 ml 430 ml Balance 1620 ml 829.2 ml 1120 ml Results Result Diagram: 07/05/16 0435 07/05/16 0420 Results 24 hrs Laboratory Tests Test 07/05/16 04:20 07/05/16 04:35 07/05/16 06:05 Sodium Level 135 Potassium Level 4.9 Chloride Level 101 Carbon Dioxide Level 28 Anion Gap 11 Blood Urea Nitrogen 20 Creatinine 0.98 Glucose Level 143 Calcium Level 9.0 Hemoglobin 11.7 L Hematocrit 37.2 L Prothrombin Time 13.7 Prothrombin Time Ratio 1.1 INR International Normalized Ratio 1.05 Phosphorus Level 4.3 Magnesium Level 1.9 Urine Color YELLOW Urine Clarity CLEAR Urine pH 5.5 Urine Specific [place] >=1.030 H Urine Ketones NEGATIVE Urine Nitrite NEGATIVE Urine Bilirubin NEGATIVE Urine Urobilinogen 0.2 E.U./dL Urine Leukocyte Esterase NEGATIVE Urine Microscopic RBC 0-2 Urine Microscopic WBC 0-2 Urine Squamous Epithelial Cells FEW Urine Hyaline Casts FEW Urine Hemoglobin 2+ H Urine Glucose NEGATIVE Urine Total Protein TRACE Medications Medications Current Medications Montelukast Sodium (Singulair) 10 mg DAILY PO Last administered on 07/05/16 09 :14; Admin Dose 10 MG; Start 07/05/16 at 09:00 Miscellaneous Medication (Bystolic) 10 mg DAILY PO Last administered on 09:14; Admin Dose 10 MG; Start 07/05/16 at 09:00 Verapamil HCl (Isoptin Sr) 180 mg BID PO Last administered on 07/05/16 09:15; Admin Dose 180 MG; Start 07/04/16 at 21:00 Losartan Potassium 100 mg 100 mg DAILY PO Last administered on 07/05/16 09:15 ; Admin Dose 100 MG; Start 07/04/16 at 15:00 Lactated Ringer's 1,000 ml @ 125 mls/hr Q8H IV Last administered on 07/05/16 05:22; Admin Dose 125 MLS/HR; Start 07/04/16 at 12:51 Acetaminophen (Ofirmev 1000mg/ 100ml Iv) 100 ml @ 400 mls/hr Q6 IVPB Last administered on 07/05/16 11:38; Admin Dose 400 MLS/HR; Start 07/04/16 at 18:00 ; Stop 07/05/16 at 17:59 Tramadol HCl (Ultram) 50 mg Q6 PO Last administered on 07/05/16 11:38; Admin Dose 50 MG; Start 07/04/16 at 12:00; Stop 07/07/16 at 11:59 Oxycodone HCl (Roxicodone) 5 mg Q4H PRN PO PAIN LEVEL 1-3; Start 07/04/16 at 13 :00 Oxycodone HCl (Roxicodone) 10 mg Q4H PRN PO PAIN LEVEL 4-7; Start 07/04/16 at 13:00 Hydromorphone HCl (Dilaudid) 1 mg Q3H PRN IV PAIN LEVEL 8-10; Start 07/04/16 at 13:00 Ondansetron HCl (Zofran Inj) 4 mg Q6H PRN IV NAUSEA AND/OR VOMITING; Start at 13:00 Bisacodyl (Dulcolax Supp) 10 mg Q12H PRN [place] CONSTIPATION; Start 07/04/16 at 13: 00 Magnesium Hydroxide (Milk Of Mag) 30 ml BID PRN PO CONSTIPATION; Start at 13:00 Sodium Biphosphate/ Sodium Phosphate (Fleet Enema) 133 ml DAILY PRN [place] CONSTIPATION; Start 07/04/16 at 13:00 Docusate Sodium (Colace) 100 mg BID PO Last administered on 07/05/16 09:14; Admin Dose 100 MG; Start 07/04/16 at 21:00 Diphenhydramine HCl (Benadryl) 25 mg Q6H PRN PO PRURITUS; Start 07/04/16 at 13: 00 Pantoprazole (Protonix Tab) 40 mg BID@06,18 PO Last administered on 07/05/16 05:14; Admin Dose 40 MG; Start 07/04/16 at 18:00 Pregabalin (Lyrica) 50 mg BID PO Last administered on 07/05/16 09:14; Admin Dose 50 MG; Start 07/04/16 at 21:00 Rosuvastatin Calcium (Crestor) 10 mg QHS PO Last administered on 07/04/16 20: 40; Admin Dose 10 MG; Start 07/04/16 at 21:00 Miscellaneous Information 1 ea NOTE XX ; Start 07/05/16 at 16:30 Glucose (Glutose) 15 gm Q15M PRN PO DECREASED GLUCOSE; Start 07/05/16 at 16:30 Glucose (Glutose) 22.5 gm Q15M PRN PO DECREASED GLUCOSE; Start 07/05/16 at 16: 30 Dextrose (D50w Syringe) 25 ml Q15M PRN IV DECREASED GLUCOSE; Start 07/05/16 at 16:30 Dextrose (D50w Syringe) 50 ml Q15M PRN IV DECREASED GLUCOSE; Start 07/05/16 at 16:30 Glucagon (Glucagen) 1 mg Q15M PRN IM DECREASED GLUCOSE; Start 07/05/16 at 16:30 Glucose (Glutose) 15 gm Q15M PRN BUCCAL DECREASED GLUCOSE; Start 07/05/16 at 16 :30 POONAM AGUILAR MD Jul 05, 2016 17:10
[2016-07-05 19:14] VITALS: BP 128/64; RESP 20
[2016-07-05] MEDS: ROSUVASTATIN CALCIUM 40 MG TABLET PO SCH (21:49)
[2016-07-05 23:00] VITALS: BP 117/62; PULSE 63
[2016-07-06] MEDS: LACTATED RINGER'S 1,000 ML IV SCH ×3 (04:51→20:51)
[2016-07-06] MEDS: traMADol 50 MG TAB PO SCH ×4 (06:20→22:23)
[2016-07-06] MEDS: PANTOPRAZOLE (EC) 40 MG TAB PO SCH ×2 (06:21→17:48)
[2016-07-06 06:48] LABS: HEMOGLOBIN 11.7 g/dl (14.0-18.0)
[2016-07-06 07:12] LABS: INR 1.08; PT RATIO 1.1
[2016-07-06 07:13] LABS: POTASSIUM 4.5 mmol/L (3.5-5.1)
[2016-07-06 07:16] LABS: CREATININE 0.75 mg/dl (0.61-1.24)
[2016-07-06 08:12] VITALS: BP 124/62; RESP 20
[2016-07-06] MEDS: metFORMIN 500 MG TAB PO SCH (08:34)
[2016-07-06] MEDS: NEBIVOLOL 5 MG TAB PO SCH (08:35)
[2016-07-06] MEDS: LOSARTAN 50 MG TAB PO SCH (08:35)
[2016-07-06] MEDS: DOCUSATE SODIUM 100 MG CAP PO SCH ×2 (08:35→20:37)
[2016-07-06] MEDS: PREGABALIN 50 MG CAP PO SCH ×2 (08:36→20:37)
[2016-07-06] MEDS: MONTELUKAST 10 MG TAB PO SCH (08:36)
[2016-07-06] MEDS: VERAPAMIL (SR) 180 MG TAB PO SCH ×2 (08:36→20:37)
--- NOTE | 2016-07-06 10:04 | PN ---
Date/Time of Note Date/Time of Note DATE: 07/06/16 TIME: 10:03 Assessment/Plan Lines/Catheters IV Catheter Type (from Nrsg): Saline Lock Wall in Place (from Nrsg): No Assessment/Plan Assessment/Plan Stable POD #2, s/p left TKA -pain meds as needed -SCDs BLE -coumadin 5mg at 1700 today -OOB with PT -dressing changed -check AM labs -Will plan to go home tomorrow Subjective 24 Hr Interval Summary No acute overnight events. Mild pain with ambulation. Progressing with PT. VSS, afebrile. Will plan to go home tomorrow. Exam/Review of Systems Vital Signs Vitals Vital Signs Date Time Temp Pulse Resp B/P Pulse Ox O2 Delivery O2 Flow Rate FiO2 07/06/16 08:12 98.3 67 20 124/62 94 07/05/16 08:25 Nasal Cannula 2.0 Intake and Output 07/05/16 07/05/16 07/06/16 15:00 23:00 07:00 Intake Total 1300 ml 1800 ml Output Total 600 ml 2000 ml Balance 700 ml -200 ml Exam Free Text/Dictation Dressing dry Incision clean, dry, and intact without redness or drainage Thigh soft 5/5 Quadriceps, Tibialis Anterior, EHL, Gastroc, Soleus, Peroneals Normal sensation Palpable DT/PT, CR <2 sec No distal edema Results Result Diagram: 07/06/16 0432 07/06/16 0432 KIRSTEN WALDRON PA-C Jul 06, 2016 10:04
--- NOTE | 2016-07-06 11:03 | CONS ---
Date/Time of Note Date/Time of Note DATE: 07/06/16 TIME: 11:02 Assessment/Plan Assessment/Plan Additional Assessment/Plan 1. Doing well post op left knee replacement, labs rev 2. BP well controlled Consultation Date/Type/Reason Admit Date/Time Jul 04, 2016 at 07:32 Detailed Summary Respiratory: No cough, No shortness of breath Cardiovascular: No chest pain Gastrointestinal: no complaints Genitourinary: no complaints Musculoskeletal: bone/joint pain (mild left knee pain) Exam/Review of Systems Vital Signs Vitals Vital Signs Date Time Temp Pulse Resp B/P Pulse Ox O2 Delivery O2 Flow Rate FiO2 07/06/16 08:12 98.3 67 20 124/62 94 07/05/16 08:25 Nasal Cannula 2.0 Intake and Output 07/05/16 07/05/16 07/06/16 15:00 23:00 07:00 Intake Total 1300 ml 1800 ml Output Total 600 ml 2000 ml Balance 700 ml -200 ml Exam Neck: No jvd Respiratory: clear to auscultation Cardiovascular: regular rate and rhythm Gastrointestinal: soft Extremities: No edema (and no calf tend) Results Result Diagram: 07/06/16 0432 07/06/16 0432 Results 24 hrs Laboratory Tests Test 07/06/16 04:32 Hemoglobin 11.7 L Hematocrit 37.0 L Prothrombin Time 14.0 Prothrombin Time Ratio 1.1 INR International Normalized Ratio 1.08 Sodium Level 135 Potassium Level 4.5 Chloride Level 103 Carbon Dioxide Level 27 Anion Gap 10 Blood Urea Nitrogen 16 Creatinine 0.75 Glucose Level 100 # Calcium Level 9.0 Medications Medications Current Medications Montelukast Sodium (Singulair) 10 mg DAILY PO Last administered on 07/06/16 08: 36; Admin Dose 10 MG; Start 07/05/16 at 09:00 Miscellaneous Medication (Bystolic) 10 mg DAILY PO Last administered on 08:35; Admin Dose 10 MG; Start 07/05/16 at 09:00 Verapamil HCl (Isoptin Sr) 180 mg BID PO Last administered on 07/06/16 08:36; Admin Dose 180 MG; Start 07/04/16 at 21:00 Losartan Potassium 100 mg 100 mg DAILY PO Last administered on 07/06/16 08:35; Admin Dose 100 MG; Start 07/04/16 at 15:00 Lactated Ringer's (Lr) 1,000 ml @ 125 mls/hr Q8H IV Last administered on 05:22; Admin Dose 125 MLS/HR; Start 07/04/16 at 12:51 Tramadol HCl (Ultram) 50 mg Q6 PO Last administered on 07/06/16 06:20; Admin Dose 50 MG; Start 07/04/16 at 12:00; Stop 07/07/16 at 11:59 Oxycodone HCl (Roxicodone) 5 mg Q4H PRN PO PAIN LEVEL 1-3; Start 07/04/16 at 13 :00 Oxycodone HCl (Roxicodone) 10 mg Q4H PRN PO PAIN LEVEL 4-7; Start 07/04/16 at 13:00 Hydromorphone HCl (Dilaudid) 1 mg Q3H PRN IV PAIN LEVEL 8-10; Start 07/04/16 at 13:00 Ondansetron HCl (Zofran Inj) 4 mg Q6H PRN IV NAUSEA AND/OR VOMITING; Start at 13:00 Bisacodyl (Dulcolax Supp) 10 mg Q12H PRN [place] CONSTIPATION; Start 07/04/16 at 13: 00 Magnesium Hydroxide (Milk Of Mag) 30 ml BID PRN PO CONSTIPATION; Start at 13:00 Sodium Biphosphate/ Sodium Phosphate (Fleet Enema) 133 ml DAILY PRN [place] CONSTIPATION; Start 07/04/16 at 13:00 Docusate Sodium (Colace) 100 mg BID PO Last administered on 07/06/16 08:35; Admin Dose 100 MG; Start 07/04/16 at 21:00 Diphenhydramine HCl (Benadryl) 25 mg Q6H PRN PO PRURITUS; Start 07/04/16 at 13: 00 Pantoprazole (Protonix Tab) 40 mg BID@06,18 PO Last administered on 07/06/16 06 :21; Admin Dose 40 MG; Start 07/04/16 at 18:00 Pregabalin (Lyrica) 50 mg BID PO Last administered on 07/06/16 08:36; Admin Dose 50 MG; Start 07/04/16 at 21:00 Rosuvastatin Calcium (Crestor) 10 mg QHS PO Last administered on 3/31/17at 21: 49; Admin Dose 10 MG; Start 07/04/16 at 21:00 Miscellaneous Information 1 ea NOTE XX ; Start 07/05/16 at 16:30 Glucose (Glutose) 15 gm Q15M PRN PO DECREASED GLUCOSE; Start 07/05/16 at 16:30 Glucose (Glutose) 22.5 gm Q15M PRN PO DECREASED GLUCOSE; Start 07/05/16 at 16: 30 Dextrose (D50w Syringe) 25 ml Q15M PRN IV DECREASED GLUCOSE; Start 07/05/16 at 16:30 Dextrose (D50w Syringe) 50 ml Q15M PRN IV DECREASED GLUCOSE; Start 07/05/16 at 16:30 Glucagon (Glucagen) 1 mg Q15M PRN IM DECREASED GLUCOSE; Start 07/05/16 at 16:30 Glucose (Glutose) 15 gm Q15M PRN BUCCAL DECREASED GLUCOSE; Start 07/05/16 at 16 :30 Warfarin Sodium (Coumadin) 5 mg ONCE@17 ONCE PO ; Start 07/06/16 at 17:00; Stop 07/06/16 at 17:01 VIKRAM GIVENS MD Jul 06, 2016 11:03
[2016-07-06] MEDS ORDERED: WARFARIN 5 MG TAB PO ONE (17:00)
[2016-07-06 19:35] VITALS: BP 133/69; RESP 20
[2016-07-06] MEDS ORDERED: ZOLPIDEM 5 MG TAB PO PRN (20:00)
[2016-07-06] MEDS: ROSUVASTATIN CALCIUM 40 MG TABLET PO SCH (20:37)
[2016-07-07] MEDS: LACTATED RINGER'S 1,000 ML IV SCH (04:51)
[2016-07-07] MEDS: PANTOPRAZOLE (EC) 40 MG TAB PO SCH (05:09)
[2016-07-07] MEDS: traMADol 50 MG TAB PO SCH (05:09)
[2016-07-07 05:15] LABS: HEMATOCRIT 35.3 % (42.0-52.0); HEMOGLOBIN 11.5 g/dl (14.0-18.0)
[2016-07-07 05:31] LABS: INR 1.1; PROTIME 14.2 Sec (12.2-14.2); PT RATIO 1.1
[2016-07-07 05:38] LABS: POTASSIUM 3.9 mmol/L (3.5-5.1)
[2016-07-07 05:40] LABS: CREATININE 0.69 mg/dl (0.61-1.24)
[2016-07-07 05:41] LABS: CALCIUM 8.9 mg/dl (8.4-10.2)
[2016-07-07] MEDS: MONTELUKAST 10 MG TAB PO SCH (08:27)
[2016-07-07] MEDS: NEBIVOLOL 5 MG TAB PO SCH (08:28)
[2016-07-07] MEDS: metFORMIN 500 MG TAB PO SCH (08:28)
[2016-07-07] MEDS: DOCUSATE SODIUM 100 MG CAP PO SCH (08:28)
[2016-07-07] MEDS: LOSARTAN 50 MG TAB PO SCH (08:28)
[2016-07-07] MEDS: VERAPAMIL (SR) 180 MG TAB PO SCH (08:28)
[2016-07-07 08:30] VITALS: BP 147/75; PULSE 74; RESP 17
[2016-07-07] MEDS: PREGABALIN 50 MG CAP PO SCH (08:41)
--- NOTE | 2016-07-07 10:19 | PN ---
Date/Time of Note Date/Time of Note DATE: 07/07/16 TIME: 10:18 Assessment/Plan Lines/Catheters IV Catheter Type (from Nrsg): Saline Lock Wall in Place (from Nrsg): No Assessment/Plan Assessment/Plan Stable POD #3, s/p left TKA -pain meds as needed -SCDs -STAT venous duplex r/o DVT LLE -coumadin 5mg today -dressing changed -if doppler negative, stable for d/c home today -follow up in the office in 1 week Subjective 24 Hr Interval Summary No acute overnight events. Mild pain with ambulation. Progressing well with PT, walking 250ft. Stable for d/c home today. Exam/Review of Systems Vital Signs Vitals Vital Signs Date Time Temp Pulse Resp B/P Pulse Ox O2 Delivery O2 Flow Rate FiO2 07/06/16 19:35 98.2 80 20 133/69 95 07/05/16 08:25 Nasal Cannula 2.0 Intake and Output 07/06/16 07/06/16 07/07/16 15:00 23:00 07:00 Intake Total 930 ml 1600 ml Output Total 1600 ml 1700 ml Balance -670 ml -100 ml Exam Free Text/Dictation Dressing dry Incision clean, dry, and intact without redness or drainage Thigh soft, mild LLE soft tissue swelling 5/5 Quadriceps, Tibialis Anterior, EHL, Gastroc, Soleus, Peroneals Normal sensation Palpable DT/PT, CR <2 sec No distal edema Results Result Diagram: 07/07/16 0438 07/07/16 0435 KIRSTEN WALDRON PA-C Jul 07, 2016 10:19
[2016-07-07] MEDS ORDERED: WARFARIN 5 MG TAB PO ONE (10:30)
--- NOTE | 2016-07-07 11:27 | CONS ---
Date/Time of Note Date/Time of Note DATE: 07/07/16 TIME: 11:25 Assessment/Plan Assessment/Plan Additional Assessment/Plan 1. Doing well post op left knee replacement 2. History of supraventricular dysrhythmia, rhythm is regular 3. Hyperlipidemia. Continue statin daily. 4. Mild exp wheeze, cxr ordered re--chf sec to vol overload, lasix given, await results before I ok dc, venous vasc study ordered as well Consultation Date/Type/Reason Admit Date/Time Jul 04, 2016 at 07:32 Detailed Summary Respiratory: cough (very mild and not productive and senses some wheezing) Cardiovascular: No chest pain Gastrointestinal: no complaints Genitourinary: no complaints Musculoskeletal: bone/joint pain (mild left knee pain) Exam/Review of Systems Vital Signs Vitals Vital Signs Date Time Temp Pulse Resp B/P Pulse Ox O2 Delivery O2 Flow Rate FiO2 07/06/16 19:35 98.2 80 20 133/69 95 07/05/16 08:25 Nasal Cannula 2.0 Intake and Output 07/06/16 07/06/16 07/07/16 15:00 23:00 07:00 Intake Total 930 ml 1600 ml Output Total 1600 ml 1700 ml Balance -670 ml -100 ml Exam Neck: No jvd Respiratory: diminished breath sounds (few exp wheezes and no rales) Cardiovascular: regular rate and rhythm, No S3 Gastrointestinal: soft Extremities: No edema (edema right lower extrem without calf tend) Results Result Diagram: 07/07/16 0438 07/07/16 0435 Results 24 hrs Laboratory Tests Test 07/07/16 04:35 07/07/16 04:38 Prothrombin Time 14.2 Prothrombin Time Ratio 1.1 INR International Normalized Ratio 1.10 Sodium Level 137 Potassium Level 3.9 Chloride Level 101 Carbon Dioxide Level 28 Anion Gap 12 Blood Urea Nitrogen 17 Creatinine 0.69 Glucose Level 104 Calcium Level 8.9 Hemoglobin 11.5 L Hematocrit 35.3 L Medications Medications Current Medications Montelukast Sodium (Singulair) 10 mg DAILY PO Last administered on 07/07/16 08: 27; Admin Dose 10 MG; Start 07/05/16 at 09:00 Miscellaneous Medication (Bystolic) 10 mg DAILY PO Last administered on 08:28; Admin Dose 10 MG; Start 07/05/16 at 09:00 Verapamil HCl (Isoptin Sr) 180 mg BID PO Last administered on 07/07/16 08:28; Admin Dose 180 MG; Start 07/04/16 at 21:00 Losartan Potassium 100 mg 100 mg DAILY PO Last administered on 07/07/16 08:28; Admin Dose 100 MG; Start 07/04/16 at 15:00 Lactated Ringer's (Lr) 1,000 ml @ 125 mls/hr Q8H IV Last administered on 05:22; Admin Dose 125 MLS/HR; Start 07/04/16 at 12:51 Tramadol HCl (Ultram) 50 mg Q6 PO Last administered on 07/07/16 05:09; Admin Dose 50 MG; Start 07/04/16 at 12:00; Stop 07/07/16 at 11:59 Oxycodone HCl (Roxicodone) 5 mg Q4H PRN PO PAIN LEVEL 1-3; Start 07/04/16 at 13 :00 Oxycodone HCl (Roxicodone) 10 mg Q4H PRN PO PAIN LEVEL 4-7; Start 07/04/16 at 13:00 Hydromorphone HCl (Dilaudid) 1 mg Q3H PRN IV PAIN LEVEL 8-10; Start 07/04/16 at 13:00 Ondansetron HCl (Zofran Inj) 4 mg Q6H PRN IV NAUSEA AND/OR VOMITING; Start at 13:00 Bisacodyl (Dulcolax Supp) 10 mg Q12H PRN [place] CONSTIPATION; Start 07/04/16 at 13: 00 Magnesium Hydroxide (Milk Of Mag) 30 ml BID PRN PO CONSTIPATION; Start at 13:00 Sodium Biphosphate/ Sodium Phosphate (Fleet Enema) 133 ml DAILY PRN [place] CONSTIPATION; Start 07/04/16 at 13:00 Docusate Sodium (Colace) 100 mg BID PO Last administered on 07/07/16 08:28; Admin Dose 100 MG; Start 07/04/16 at 21:00 Diphenhydramine HCl (Benadryl) 25 mg Q6H PRN PO PRURITUS; Start 07/04/16 at 13: 00 Pantoprazole (Protonix Tab) 40 mg BID@06,18 PO Last administered on 07/07/16 05 :09; Admin Dose 40 MG; Start 07/04/16 at 18:00 Pregabalin (Lyrica) 50 mg BID PO Last administered on 07/07/16 08:41; Admin Dose 50 MG; Start 07/04/16 at 21:00 Rosuvastatin Calcium (Crestor) 10 mg QHS PO Last administered on 07/06/16 20:37 ; Admin Dose 10 MG; Start 07/04/16 at 21:00 Miscellaneous Information 1 ea NOTE XX ; Start 07/05/16 at 16:30 Glucose (Glutose) 15 gm Q15M PRN PO DECREASED GLUCOSE; Start 07/05/16 at 16:30 Glucose (Glutose) 22.5 gm Q15M PRN PO DECREASED GLUCOSE; Start 07/05/16 at 16: 30 Dextrose (D50w Syringe) 25 ml Q15M PRN IV DECREASED GLUCOSE; Start 07/05/16 at 16:30 Dextrose (D50w Syringe) 50 ml Q15M PRN IV DECREASED GLUCOSE; Start 07/05/16 at 16:30 Glucagon (Glucagen) 1 mg Q15M PRN IM DECREASED GLUCOSE; Start 07/05/16 at 16:30 Glucose (Glutose) 15 gm Q15M PRN BUCCAL DECREASED GLUCOSE; Start 07/05/16 at 16 :30 Zolpidem Tartrate (Ambien) 10 mg HS PRN PO INSOMNIA Last administered on 22:22; Admin Dose 10 MG; Start 07/06/16 at 20:00 VIKRAM GIVENS MD Jul 07, 2016 11:27
[2016-07-07] MEDS ORDERED: POTASSIUM CHLORIDE (SR) 10 MEQ TAB PO ONE (11:30)
[2016-07-07] MEDS ORDERED: FUROSEMIDE 20 MG INJ IV ONE (11:30)
--- NOTE | 2016-07-07 11:50 | RADRPT ---
PROCEDURE: Ultrasound of the left lower extremity venous system. CLINICAL INDICATION: Left leg pain and swelling, deep venous thrombosis TECHNIQUE: Iyer scale with and without compression, color doppler, spectral doppler of the venous system of the left lower extremity was performed. Venous augmentation maneuvers were utilized. COMPARISON: No prior studies are available for comparison. FINDINGS: Common femoral vein: Patent. Femoral vein: Patent. Popliteal vein: Patent. Calf veins: Patent. No soft tissue abnormalities are identified. IMPRESSION: No evidence of a deep vein thrombosis within the left lower extremity. RPTAT: AADD .Kemar Muñoz MD, MD Date Time Electronically viewed and signed by .Kemar Muñoz MD, on 07/07/2016 11:49 .B/
--- NOTE | 2016-07-07 13:14 | RADRPT ---
PROCEDURE: XR Chest. CLINICAL INDICATION: wheezing. PT UNABLE TO STAND STEADY. TECHNIQUE: Single frontal view of the chest was obtained. COMPARISON: 06/28/2016 FINDINGS: The cardiomediastinal silhouette is moderately enlarged. Pulmonary vasculature is mildly prominent. There are sternal wires CABG clips. Upper sternotomy wire is fragmented. There is bibasilar atel ectasis. There is mild to moderate aortic calcification. No signs of pleural fluid or pneumothorax are seen. The osseous structures and soft tissues are unre markable. IMPRESSION: 1. Moderate cardiomegaly. Pulmonary vascular congestion. 2. Bibasilar atelectasis. 3. Mild to moderate aortic calcification. RPTAT: HBST .Joe Cesar MD, MD Date Time Electronically viewed and signed by .Joe Cesar MD, on 07/07/2016 13:14 .T/
--- NOTE | 2016-07-07 19:50 | DS ---
DATE OF ADMISSION: 07/04/2016 DATE OF DISCHARGE: 07/07/2016 CONDITION ON DISCHARGE: Stable. ADMITTING DIAGNOSIS: Left knee osteoarthritis. DISCHARGE DIAGNOSIS: Status post left total knee arthroplasty. PROCEDURE PERFORMED: Left total knee arthroplasty. HOSPITAL COURSE: This is a 70-year-old male who was seen in the clinic complaining of left knee pain. Radiographs were obtained and demonstrated advanced osteoarthritis of the left knee and there thought he would benefit from a left total knee arthroplasty. On 07/04/2016, the patient was admitted and taken to the operating room where he underwent a left total knee arthroplasty. There were no intraoperative complications. The patient tolerated the procedure well. He was taken to the recovery room in stable condition. Pain was well controlled with oral pain medication. He was started on Coumadin and SCDs for DVT prophylaxis. He remained hemodynamically stable and neurovascularly intact throughout his hospital stay. He began physical therapy on postoperative day 1 and continued to make good progress. He was deemed clinically stable for discharge on postoperative day 3. Prior to discharge, the incision was inspected and noted to be clean, dry, and intact. Dressing changes were done prior to patient going home. LABORATORY ANALYSIS: Hemoglobin 11.5, hematocrit 35.3. Chemistry panel was within normal limits. INR upon discharge of 1.10. DISCHARGE MEDICATIONS: 1. [place] 7.5/325 mg. 2. Tramadol 50 mg. 3. Lyrica 50 mg. 4. Coumadin 2 mg. 5. Coumadin 1 mg. 6. Additionally, the patient is to resume all of his normal home medications. DISCHARGE INSTRUCTIONS: The patient will be discharged home in stable condition. He is to resume a normal diet. Activity includes weightbearing as tolerated on the left lower extremity. He will begin physical therapy with home health. He will be discharged home on the medications noted above and is to resume all normal home medication. The patient is to call the office or go to the emergency room for any concerns including increased redness, swelling, drainage, or fever or any concerns regarding the operation or site of incision. FOLLOWUP: The patient is to follow up in the office on 07/15/2016. Dictated By: KIRSTEN RUSHING/MOODY Conf#: [id number] DID#: [id number] [facility] HEALTH SYSTEMSameera
== END 2016-07-07 14:20 | disposition home health service (06) | DRG 470 ==
LOC: REC 07:32 → MS1 14:19
PROVIDERS: ADMIT Orthopaedic Surgery; ATTEND Orthopaedic Surgery
PROC: 0SRD0J9 Replacement of Left Knee Joint with Synthetic Substitute, Cemented, Open Approach (ICD-10-PCS; principal; 2016-07-04 10:00)
DX: M17.12 Unilateral primary osteoarthritis, left knee (principal); I10 Essential (primary) hypertension; E78.5 Hyperlipidemia, unspecified; I25.10 Atherosclerotic heart disease of native coronary artery without angina pectoris; I49.9 Cardiac arrhythmia, unspecified; Z95.1 Presence of aortocoronary bypass graft
CPT/HCPCS: 71010; 73560; 80048; 81001; 81003; 83735; 84100; 85014; 85018; 85610; 85730; 86850; 86900; 86901; 86920; 87081; 87086; 88304; 88311; 93971; 97110; 97116; 97162; 97166; 97530; J1940; Z7610; C1776; C9290; J0131; J0171; J0690; J0697; J0735; J1100; J1885; J2250; J2274; J2765; J3010; J3370; J7120

== ENCOUNTER → 2016-07-15 | Outpatient (CLI) | payer MEDICARE, OTHER ==
[~2016-07-15] MED LIST changes: -BUPIVACAINE LIPOSOME/PF 266 MG/20 ML VIAL INFIL ONE; -CEFAZOLIN 2GM/50 ML (PMX) 50 ML X1 BEFORE INCISION IVPB ONE; -CELECOXIB 400 MG PO X1 DOSE PO ONE; -COU1 PO; -COU2 PO; -EPHEDrine SULFATE 50 MG/5 ML SYG ONE; +HYDR-905 PO; -LACTATED RINGER'S 1,000 ML IV SCH; +METF-382 PO; -NEBI5TAB9 PO; -PAIN COCKTAIL-CEFUROXIME IRR ONE; +PREG50CA PO; -PREGABALIN 300 MG PO X1 PO ONE; -ROSU10TA PO; -SOD CHLORIDE 0.9% IV ONE; -SOD CHLORIDE 0.9% IVPB ONE; +TRAM50TA2 PO; -TRANEXAMIC ACID IV ONE; -TRANEXAMIC ACID IVPB ONE; +WARF1TAB47 PO; +WARF2TAB PO; -oxyCODONE (CR) 10 MG TAB [oxyCONTIN] X1 DOSE PO ONE; -traMADOL 50 MG TAB X 1 DOSE PO ONE
--- NOTE | 2016-07-15 12:43 | RADRPT ---
PROCEDURE: XR left knee. CLINICAL INDICATION: Knee pain. TECHNIQUE: AP and lateral weightbearing views are available for review. COMPARISON: 07/04/2016 FINDINGS: Anterior bone vianey are still present. There is a total knee replacement. There is no evidence of loosening of the prosthesis. There is no evidence of hardware failure. The osseous structures are normal in mineralization, architecture and alignment No acute fracture or dislocation is seen.No osseous lesions are identified. The soft tiss ues are unremarkable . IMPRESSION: Unremarkable total knee replacement. RPTAT: HGDB .Michel Melton MD, MD Date Time Electronically viewed and signed by .Michel Melton MD, on 07/15/2016 12:43 .B/
--- NOTE | 2016-07-15 21:11 | HKNOTE ---
DATE OF SERVICE: 07/15/2016 INTERVAL HISTORY: The patient presents today for his first postoperative evaluation. He is 10 days status post left total knee arthroplasty. He is doing well overall. He has been taking the Coumad in as prescribed daily. He is having more pain to his left knee than he did with his left hip previ ously. He denies any fevers or chills. Denies any erythema or warmth. He is doing physical therap y with home health. Presents today for his first postoperative evaluation. PHYSICAL EXAMINATION: On exam today, he is alert and oriented x4 and in no acute distress. Exam of the incision demonstrates the wound to be clean, dry and intact. It is healing nicely. He is ambu lating with a front-wheel walker. There is no erythema or warmth. Range of motion is 0 to 110 degr ees. Varus and valgus forces are stable. Compartments are soft. Homans sign is negative. He is n eurovascularly intact distally. IMAGING: X-rays of left knee were obtained today and reviewed by me. They demonstrate good anatomi c alignment with no fracture or dislocation identified. ASSESSMENT: Ten days status post left total knee arthroplasty, doing well. PLAN: The vianey were removed today, and Steri-Strips were applied. He is to continue physical th erapy with home health and will transition to an outpatient physical therapy program. He is to cont inue Coumadin which we will dose daily for 1 more week and switch back to his Pradaxa that he was anders arriaza preoperatively by his PMD or artificial intelligence specialist. He is also to take pain medicine as needed. He grayson l begin outpatient physical therapy when tolerated. We will see him back in 4 weeks for repeat eval uation. He is to call the office in the meantime if he has any concerns. Dictated By: KIRSTEN DORMAN for LEXIE RUSHING/MOODY Conf#: [id number] DID#: [id number]
== END | disposition home or self-care (01) ==
LOC: HKI 10:18
PROVIDERS: ATTEND Orthopaedic Surgery
DX: Z47.1 Aftercare following joint replacement surgery (principal); Z96.652 Presence of left artificial knee joint

== ENCOUNTER → 2016-08-12 | Outpatient (CLI) | payer MEDICARE, OTHER ==
[~2016-08-12] MED LIST changes: -METF-382 PO; +METF500T4 PO
== END | disposition home or self-care (01) ==
LOC: HKI 09:47
PROVIDERS: ATTEND Orthopaedic Surgery
DX: Z47.1 Aftercare following joint replacement surgery (principal); M17.12 Unilateral primary osteoarthritis, left knee; Z96.652 Presence of left artificial knee joint

== ENCOUNTER → 2016-10-14 | Outpatient (CLI) | payer MEDICARE, OTHER ==
--- NOTE | 2016-10-14 16:31 | RADRPT ---
PROCEDURE: Left knee radiographs. CLINICAL INDICATION: Left knee pain. Postop. TECHNIQUE: Three views. Weight bearing. Frontal, lateral, and patellar view. COMPARISON: No prior studies are available for comparison. FINDINGS: There is no fracture or dislocation. Anterior skin vianey have been removed. Surgical clips are present in the soft tissues posteriorly medially. Vascular calcifications are present consistent with atherosclerosis. There is a total left knee arthroplasty which appears satisfactory. There is no lytic or blastic lesion. There is a small joint effusion. IMPRESSION: 1. Satisfactory postoperative appearance of the left knee. 2. Atherosclerosis. 3. Small joint effusion. RPTAT: QQ .Johnny Juan MD, MD Date Time Electronically viewed and signed by .Johnny Juan MD, on 10/14/2016 16:31 .R/
== END | disposition home or self-care (01) ==
LOC: HKI 09:58
PROVIDERS: ATTEND Orthopaedic Surgery
DX: M25.561 Pain in right knee (principal); M17.11 Unilateral primary osteoarthritis, right knee; Z96.641 Presence of right artificial hip joint; Z96.652 Presence of left artificial knee joint
CPT/HCPCS: G0463